=== PATIENT | female | born 1935 | race Caucasian/White ===

== ENCOUNTER 2018-08-27 02:23 | Inpatient (IN) | payer OTHER ==
[~2018-08-27] VITALS: Ht 162.6 cm; Wt 59.9 kg
[2018-08-27 02:23] VITALS: BP 172/75
--- NOTE | 2018-08-27 02:23 | NUR ---
PATIENT BIB BLS TO ER BED 5.
--- NOTE | 2018-08-27 02:30 | NUR ---
PT IS A 82 Y/O FEMALE BIB BLS WHO PRESENTS TO THE ED FOR 5150 - GRAVELY DISABLED. PER PD PT WAS FOUND WANDERING THE STREETS LOOKING FOR HER CAR, PD ALSO STATED THAT PT'S RECENTLY AND DAUGHTER SUPPOSEDLY ARRANGED FOR NEW LIVING SITUATION BUT LEFT FOR WELLS FOR A FEW HOURS. PT WAS SUPPOSED TO BE UNDER WATCH OF CAREGIVER BUT NO ONE WAS SEEN AT HOME. PT IN NO SIGNS OF PAIN. PT IN NO SIGNS OF CP, SOB, N/V/D. NO VISIBLE INJURIES OR SIGNS OF TRAUMA NOTED, SKIN IS INTACT. PT AO TO NAME AND PLACE ONLY, RR EVEN/UNLABORED. PT REPOSITIONED FOR COMFORT, BED IN LOWEST POSITION. ER MD DR. SEBASTIAN NOTIFIED. WILL CONTINUE TO MONITOR. PMH: DEMENTIA, HTN
--- NOTE | 2018-08-27 02:32 | NUR ---
PT DISROBED COMPLETELY AND PLACED IN HOSPITAL GOWN AND SLIPPERS. PERSONAL BELONGINGS HANDED OVER TO SECURITY FOR SAFE STORAGE. BEDSIDE EQUIPMENT REMOVED AND ALL CONTAINERS LOCKED AND SECURED, SITTER PLACED AT BEDSIDE FOR MONITORING.
--- NOTE | 2018-08-27 03:06 | NUR ---
CALLED [facility] AND FILED REPORT. SPOKE WITH ARMEN. INTAKE #[id number].
--- NOTE | 2018-08-27 03:30 | NUR ---
PATIENT RESTING AT THIS TIME; NO SIGNS OF DISTRESS; SITTER AT BEDSIDE.
--- NOTE | 2018-08-27 04:02 | NUR ---
EKG PERFORMED AT BEDSIDE. PT COVERED IN GOWN AND BLANKET DURING PROCEDURE
[2018-08-27 04:22] LABS: BASOPHILS # (AUTO) 0.1 K/uL (0.00-0.22); EOSINOPHILS # (AUTO) 0.1 K/uL (0-0.4); EOSINOPHILS % (AUTO) 1.4 % (0.0-4.0); HEMATOCRIT 39.5 % (36-48); HEMOGLOBIN 13.2 g/dL (12.0-16.0); LYMPHOCYTES # (AUTO) 1.8 K/uL (2.5-16.5); MEAN CORPUSCULAR HEMOGLOBIN 29 pg (27-31); MEAN CORPUSCULAR HGB CONC 33 g/dL (33-37); MEAN CORPUSCULAR VOLUME 85.9 fL (80-94); MONOCYTES # (AUTO) 0.8 K/uL (0.8-1.0); MONOCYTES % (AUTO) 9.1 % (1.7-9.3); NEUTROPHILS # (AUTO) 6.2 K/uL (1.8-7.7); NEUTROPHILS % (AUTO) 68.5 % (42.2-75.2); PLATELET COUNT (AUTO) 324 K/uL (140-450); RED BLOOD CELL COUNT(AUTO) 4.59 MIL/uL (4.20-5.40); RED CELL DISTRIBUTION WIDTH 14.5 % (11.6-13.7); WHITE BLOOD COUNT (AUTO) 9.1 K/uL (4.8-10.8)
--- NOTE | 2018-08-27 04:30 | NUR ---
PATIENT RESTING AT THIS TIME; NO SIGNS OF DISTRESS; SITTER AT BEDSIDE.
--- NOTE | 2018-08-27 04:30 | NUR ---
Audelia barrow in [facility] - 08/27/18 at 0547 by MEDDCV PATIENT RESTING AT THIS TIME; NO SIGNS OF DISTRESS; SITTER AT BEDSIDE.
[2018-08-27 04:52] LABS: SODIUM SERUM 141 mmol/L (136-145)
[2018-08-27 04:54] LABS: ANION GAP 8.8 (8-16); ASPARTATE AMINOTRANSFERASE 21 U/L (15-37); CARBON DIOXIDE 33.7 mmol/L (21-32); CHLORIDE 101 mmol/L (98-107); CREATININE 1.1 mg/dL (0.6-1.3); GLUCOSE 139 mg/dL (74-106); POTASSIUM 2.5 mmol/L (3.5-5.1); TOTAL BILIRUBIN 0.7 mg/dL (0.0-1.0); UREA NITROGEN, BLOOD 22 mg/dL (7-18)
[2018-08-27 04:55] LABS: ACETAMINOPHEN < 0.5 ug/ml (10-30); SALICYLATE < 2.8 mg/dL (2.8-20.0)
[2018-08-27] MEDS ORDERED: DOCUSATE SODIUM 100 MG GELCAP PO PRN (05:15)
[2018-08-27] MEDS ORDERED: HYDROcodone/APAP 7.5/325 MG 1 TAB PO PRN (05:15)
[2018-08-27] MEDS ORDERED: MORPHINE SULFATE 2 MG/ML SYR IVP PRN (05:15)
[2018-08-27] MEDS ORDERED: ONDANSETRON 4 MG/2 ML VIAL IM/IVP PRN (05:15)
[2018-08-27] MEDS ORDERED: ACETAMINOPHEN 325 MG TAB PO PRN (05:15)
[2018-08-27] MEDS ORDERED: POTASSIUM CHLORIDE 20% 40 MEQ/15 ML UDC PO ONE (05:25)
--- NOTE | 2018-08-27 05:30 | NUR ---
PATIENT RESTING AT THIS TIME; NO SIGNS OF DISTRESS; SITTER AT BEDSIDE.
[2018-08-27 05:35] LABS: COLOR,URINE YELLOW (YELLOW)
--- NOTE | 2018-08-27 05:35 | NUR ---
Patient will be admitted to care of DR. BALL. Admited to M/[facility]. Will go to room 121A. Belongings list completed. Report to AUGUST RAY.
--- NOTE | 2018-08-27 05:35 | NUR ---
ADMITTED AN 82F FROM ER. CAME BY WHEELCHAIR. MED SURG PT. PT CAME DUE TO CONFUSION, HX : DEMENTIA. ABLE TO AMBULATE FROM WHEELCHAIR TO BED WITH STANDBY ASSIST. POSITIONED PT FOR COMFORT. WITH IV ACCESS ON THE RT AC#20. CLEAR AND PATENT. PLAN OF CARE DISCUSSED BUT DUE TO DEMENTIA, SHE NEEDS REINFORCEMENT AND ASSISTANCE. SKIN INTACT. WILL FOLLOW UP ADMITTING ORDERS. INITIATE HIGH RISK FOR FALL PROTOCOL. WITH YELLOW SIGNAGE ,SOCKS AND ID BAND.
[2018-08-27 05:37] LABS: BILIRUBIN,URINE NEGATIVE (NEGATIVE); BLOOD, URINE NEGATIVE (NEGATIVE); LEUKOCYTE ESTERASE ,URINE 1+ (NEGATIVE); NITRITE, URINE NEGATIVE (NEGATIVE); UGLUCOSE NEGATIVE (NEGATIVE)
[2018-08-27 05:38] LABS: HYALINE CASTS, URINE 0-10 /LPF (None Seen); RBC,URINE 0-5 (RARE) /HPF (0-5)
[2018-08-27 05:39] LABS: APPEARANCE,URINE HAZY (CLEAR)
[2018-08-27 05:41] LABS: BARBITURATE, URINE NEG ng/ml (NEG <=200); BENZODIAZEPINE, URINE NEG ng/mL (NEG <=200); CANNABINOID, URINE NEG ng/mL (NEG <=50); COCAINE, URINE NEG ng/mL (NEG <=300); PHENCYCLIDINE SCREEN,URINE NEG ng/mL (NEG <=25)
[2018-08-27 05:42] LABS: OPIATE, URINE NEG ng/mL (NEG <=2000)
[2018-08-27] MEDS: NACL 0.9% 1,000 ML IV SCH ×2 (06:40→21:54)
--- NOTE | 2018-08-27 07:10 | NUR ---
SCD MACHINE APPLIED TO BLE ORDERED. EXPLAINED TO PT THE BENEFITS OF THE MACHINE. NEED REINFORCEMENT.
--- NOTE | 2018-08-27 07:19 | NUR ---
ENDORSED BEDSIDE REPORT TO AM SHIFT. NO COMPLAINTS OF PAIN, NOT IN RESPIRATORY DISTRESS, PT IN STABLE CONDITION
--- NOTE | 2018-08-27 07:35 | NUR ---
ENDORSED PT IN STABLE CONDITION TO AM NURSE FOR CONTINUITY OF CARE.
--- NOTE | 2018-08-27 07:40 | NUR ---
RECEIVED PT FROM FOREIGN EXCHANGE STUDENT COORDINATOR NURSE TULIO, AND AUGUST, PT IS AWAKE AND LYING ON THE BED WITH SIDE RAILS UP AND CALL LIGHT WITHIN REACH, SAFETY PRECAUTION ENFORCED, BED IN LOW POSITION, YELLOW GOWN, YELLOW SIGN AND YELLOW BAND WERE PLACED. PT HAS AN IV LINE ON THE RT AC G. 20, WITH NS AT 60ML/HR , INTACT. NO SIGN OF DISTRESS NOTED ON THE PT AND WILL CONTINUE TO MONITOR.
[2018-08-27 08:00] VITALS: BP 132/59
[2018-08-27] MEDS ORDERED: MECLIZINE 25 MG TAB PO PRN (08:55)
[2018-08-27 08:57] LABS: PROTHROMBIN TIME 9.6 secs (10.8-13.4)
[2018-08-27] MEDS ORDERED: POTASSIUM CHLORIDE 40 MEQ, LIDOCAINE 2% 25 MG in NACL 0.9% 250 ML IV SCH (09:00)
--- NOTE | 2018-08-27 09:10 | NUR ---
DR. KEBEDE IS TALKING TO THE PT'S DAUGHTER NOW AND MD IS VERIFYING INFORMATION FROM THE FAMILY.
[2018-08-27 09:27] LABS: CHOL/HDL RATIO 3.5 (1-4.5); FREE T4 (FREE THYROXINE) 1.63 ng/dL (0.76-1.46); MAGNESIUM 2.1 mg/dL (1.8-2.4); PHOSPHORUS 2.9 mg/dL (2.5-4.9); THYROID STIMULATING HORMONE 0.89 uIU/mL (0.34-3.74)
--- NOTE | 2018-08-27 09:39 | NUR ---
PT WAS STARTED ON POTASSIUM RIDER WITH LIDOCAINE AT 250ML FOR A RATE OF 67.69 FOR PT'S K LEVEL OF 2.5. PT TOLERATED IT AND NO SIGN OF DISTRESS AND REACTION NOTED. WILL CONTINUE TO MONITOR PT.
[2018-08-27 12:23] LABS: ANION GAP 6.5 (8-16); CARBON DIOXIDE 33.7 mmol/L (21-32); CHLORIDE 103 mmol/L (98-107); CREATININE 0.9 mg/dL (0.6-1.3); GLUCOSE 109 mg/dL (74-106); POTASSIUM 3.2 mmol/L (3.5-5.1); SODIUM SERUM 140 mmol/L (136-145); UREA NITROGEN, BLOOD 20 mg/dL (7-18)
[2018-08-27] MEDS ORDERED: POTASSIUM CHLORIDE 10 MEQ TABER PO SCH (13:30)
[2018-08-27] MEDS ORDERED: SIMV20TA6 PO (13:37)
[2018-08-27] MEDS ORDERED: SYN.075 PO (13:37)
[2018-08-27] MEDS ORDERED: ATEN25TA7 PO (13:37)
[2018-08-27] MEDS ORDERED: ALEN70TA52 PO (13:37)
[2018-08-27] MEDS ORDERED: ORE25 PO (13:51)
[2018-08-27] MEDS ORDERED: ALENDRONATE SODIUM 70 MG TAB PO SCH (14:30)
--- NOTE | 2018-08-27 15:00 | NUR ---
PT IS AWAKE AND SEATED ON THE BED WITH DAUGHTER ON THE BEDSIDE, ORAL MEDICATIONS GIVEN AND ROCEPHIN WAS STARTED VIA IVPB, PT TOLERATED IT AND NO REACTION NOTED. WILL CONTINUE TO MONITOR PT.
[2018-08-27 16:00] VITALS: BP 114/54
--- NOTE | 2018-08-27 16:46 | NUR ---
PER DAUGHTER PATIENT RECEIVED FLU VACCINE FROM DR PAL'S OFFICE 2 WEEKS AGO.
--- NOTE | 2018-08-27 19:35 | NUR ---
RECEIVED REPORT FROM DAY SHIFT NURSE, YAN, AT PT BEDSIDE. PT IN STABLE CONDITION. PT FAMILY IS AT BEDSIDE. PT IS AAOX3. PT ON RA. RESPIRATIONS ARE EVEN AND UNLABORED. IV ACCESS IN L AC 20G WITH IVF RUNNING PER MD ORDERS. IV IS PATENT AND INTACT. PT SKIN IS INTACT. PT HAS NO C/O PAIN AT THIS TIME. SCD'S ARE IN PLACE. BED IS LOCKED, LOW POSITION WITH SIDE RAILS UP X2. CALL LIGHT IS WITHIN REACH. BOARD UPDATED. WILL CONTINUE TO MONITOR PT.
--- NOTE | 2018-08-27 19:35 | NUR ---
ENDORSED PT TO SENIOR INTERIOR DESIGNER NURSECHAI FOR CONTINUITY OF CARE. PT IS STABLE AT THIS TIME WITH STEPDAUGHTER ON THE BEDSIDE.
[2018-08-27] MEDS: SIMVASTATIN 20 MG TAB PO SCH (20:26)
--- NOTE | 2018-08-27 20:26 | NUR ---
ADMINISTERED SCHEDULED MEDICATION. PT TOLERATED WELL. WILL CONTINUE TO MONITOR.
--- NOTE | 2018-08-27 22:58 | NUR ---
PT WOKE AND WAS PULLING AT IV. PT DID NOT REMEMBER SHE WAS IN THE HOSPITAL. REORIENTED PT AND RE TAPED IV. IV IS STALL PATENT AND INTACT, FLUSHING WELL. PT NOW RESTING COMFORTABLY IN BED. WILL CONTINUE TO MONITOR.
[2018-08-28] VITALS: BP 127/54
--- NOTE | 2018-08-28 01:05 | NUR ---
PT ASLEEP IN BED. NO SIGNS OR SYMPTOMS OF DISTRESS. WILL CONTINUE TO MONITOR.
--- NOTE | 2018-08-28 03:31 | NUR ---
NO CHANGE IN CONDITION. PT HAS NO SIGNS OR SYMPTOMS OF DISTRESS. WILL CONTINUE TO MONITOR.
[2018-08-28] MEDS: NACL 0.9% 1,000 ML IV SCH (04:07)
--- NOTE | 2018-08-28 04:08 | NUR ---
STARTED NEW BAG OF IVF. PT SLEEPING IN BED. NO SIGNS OR SYMPTOMS OF DISTRESS. WILL CONTINUE TO MONITOR.
--- NOTE | 2018-08-28 07:32 | NUR ---
ENDORSED PT TO DAY SHIFT NURSEERNIE FOR CONTINUITY OF CARE. PT IN STABLE CONDITION.
--- NOTE | 2018-08-28 07:35 | NUR ---
RECEIVED REPORT FROM AUTO BODY REPAIR TECHNICIAN NURSE. PT IS SLEEPING IN BED, SEMI FOWLERS POSITION, PT EASILY AWAKEN, PT IS AAOX1-2, PT HAS IV ON THE RIGHT AC, PATENT, INTACT, FLUSHING WELL, PT SKIN IS INTACT, NO S/S OF RESPIRATORY DISTRESS OR DISCOMFORT NOTED, PT IS ON ROOM AIR, DISCUSSED PLAN OF CARE WITH PT, PT VERBALIZED UNDERSTANDING, REINFORCEMENT IS NEEDED SAFETY/FALL PRECAUTIONS ARE IN PLACE, CALL LIGHT IS WITHIN REACH, PT'S STEPDAUGHTER IS AT BEDSIDE, WILL CONTINUE TO MONITOR.
[2018-08-28 07:54] LABS: BASOPHILS % (AUTO) 0.7 % (0.0-2.0); EOSINOPHILS # (AUTO) 0.2 K/uL (0-0.4); EOSINOPHILS % (AUTO) 3.9 % (0.0-4.0); HEMATOCRIT 39.9 % (36-48); HEMOGLOBIN 13.2 g/dL (12.0-16.0); LYMPHOCYTES # (AUTO) 1.8 K/uL (2.5-16.5); LYMPHOCYTES % (AUTO) 29.4 % (20.5-51.1); MEAN CORPUSCULAR HEMOGLOBIN 29 pg (27-31); MEAN CORPUSCULAR HGB CONC 33 g/dL (33-37); MEAN CORPUSCULAR VOLUME 86.3 fL (80-94); MONOCYTES # (AUTO) 0.5 K/uL (0.8-1.0); MONOCYTES % (AUTO) 7.6 % (1.7-9.3); NEUTROPHILS # (AUTO) 3.6 K/uL (1.8-7.7); NEUTROPHILS % (AUTO) 58.4 % (42.2-75.2); PLATELET COUNT (AUTO) 310 K/uL (140-450); RED BLOOD CELL COUNT(AUTO) 4.62 MIL/uL (4.20-5.40); RED CELL DISTRIBUTION WIDTH 14.9 % (11.6-13.7); WHITE BLOOD COUNT (AUTO) 6.1 K/uL (4.8-10.8)
[2018-08-28 08:00] VITALS: BP 138/58
[2018-08-28 08:37] LABS: ANION GAP 8.3 (8-16); CHLORIDE 108 mmol/L (98-107); CREATININE 0.9 mg/dL (0.6-1.3); GLUCOSE 95 mg/dL (74-106); POTASSIUM 3.3 mmol/L (3.5-5.1); SODIUM SERUM 144 mmol/L (136-145); UREA NITROGEN, BLOOD 16 mg/dL (7-18)
--- NOTE | 2018-08-28 08:39 | NUR ---
PATIENT HAS BEEN SCREENED AND CATEGORIZED MODERATE NUTRITION RISK. PATIENT WILL BE SEEN WITHIN 3-5 DAYS OF ADMISSION. 08/29/18 08/31/[address]
[2018-08-28 08:43] LABS: PHOSPHORUS 2.5 mg/dL (2.5-4.9)
[2018-08-28] MEDS: ATENOLOL 25 MG TAB PO SCH (08:56)
[2018-08-28] MEDS: SPIRONOLACTONE 25 MG TAB PO SCH (08:57)
--- NOTE | 2018-08-28 08:57 | NUR ---
DUE MEDICATIONS GIVEN, PT TOLERATED WELL. PT'S FAMILY MEMBER IS AT BEDSIDE, CALL LIGHT IS WITHIN REACH.
[2018-08-28] MEDS ORDERED: HYDROCHLOROTHIAZIDE 25 MG TAB PO SCH (09:00)
[2018-08-28] MEDS ORDERED: LEVOTHYROXINE 0.075 MG TAB PO SCH ×2 (09:00→14:12)
[2018-08-28 09:12] LABS: T4 (THYROXINE) 10.5 ug/dL (4.5-12.0)
[2018-08-28] MEDS ORDERED: POTASSIUM CHLORIDE 40 MEQ, LIDOCAINE 2% 25 MG in NACL 0.9% 250 ML IV SCH (11:30)
--- NOTE | 2018-08-28 11:30 | NUR ---
PT IS SITTING IN BED, WATCHING TV, NO S/S OF DISTRESS OR DISCOMFORT NOTED, FAMILY MEMBER IS AT BEDSIDE, CALL LIGHT WITHIN REACH.
[2018-08-28] MEDS ORDERED: SPIR25TA PO (12:36)
[2018-08-28] MEDS ORDERED: SULF-58 PO (12:36)
--- NOTE | 2018-08-28 13:11 | NUR ---
ADMISSION CHART REVIEW DONE INITIAL REVIEW FAXED TO [facility] [phone] PHONE VINH [phone]
--- NOTE | 2018-08-28 14:47 | NUR ---
PT IS RESTING IN BED, FAMILY MEMBER IS AT BEDSIDE, ALL NEEDS ARE MET AT THIS TIME.
[2018-08-28 16:00] VITALS: BP 141/54
--- NOTE | 2018-08-28 19:25 | NUR ---
ENDORSED PT TO RV REPAIRER NURSE FOR CONTINUITY OF CARE. PT STABLE AT THIS TIME.
--- NOTE | 2018-08-28 19:26 | NUR ---
RECEIVED REPORT FROM DAY SHIFT RN, FOR CONTINUITY OF CARE. PT IS A/OX2, ON ROOM AIR. PT IS ABLE TO MAKE NEEDS KNOWN, ABLE TO FOLLOW COMMANDS. PT BREATHS EQUAL AND UNLABORED. PT SKIN IS INTACT. PT AMBULATES WITH ASSIST. PT HAS A 24G IV TO LEFT HAND, ASYMPTOMATIC AND INTACT. DISCUSSED PLAN OF CARE WITH PT, PT VERBALIZED UNDERSTANDING. VITAL SIGNS WITHIN NORMAL LIMITS. PT STABLE, NO SIGNS OF DISTRESS NOTED AT THIS TIME. BED IN LOWEST POSITION, BED ALARM ON. CALL LIGHT WITHIN REACH, WILL CONTINUE TO MONITOR.
[2018-08-28] MEDS: SIMVASTATIN 20 MG TAB PO SCH (20:37)
--- NOTE | 2018-08-28 20:38 | NUR ---
ADMINISTERED SCHEDULED MEDICATION, PT TOLERATED WELL.
[2018-08-29] VITALS: BP 122/50
--- NOTE | 2018-08-29 | NUR ---
VITAL SIGNS WITHIN NORMAL LIMITS. PT STABLE, NO SIGNS OF DISTRESS NOTED AT THIS TIME. BED IN LOWEST POSITION, BED ALARM ON. CALL LIGHT WITHIN REACH, WILL CONTINUE TO MONITOR.
--- NOTE | 2018-08-29 02:15 | NUR ---
PT RESTING, NO SIGNS OF DISTRESS NOTED AT THIS TIME. BED IN LOWEST POSITION, BED ALARM ON. CALL LIGHT WITHIN REACH, WILL CONTINUE TO MONITOR.
--- NOTE | 2018-08-29 04:00 | NUR ---
PT STABLE, NO SIGNS OF DISTRESS NOTED AT THIS TIME. BED IN LOWEST POSITION, BED ALARM ON. CALL LIGHT WITHIN REACH, WILL CONTINUE TO MONITOR.
--- NOTE | 2018-08-29 06:10 | NUR ---
ADMINISTERED SCHEDULED MEDICATION, PT TOLERATED WELL.
[2018-08-29 06:50] LABS: BASOPHILS # (AUTO) 0.1 K/uL (0.00-0.22); BASOPHILS % (AUTO) 0.9 % (0.0-2.0); EOSINOPHILS # (AUTO) 0.3 K/uL (0-0.4); EOSINOPHILS % (AUTO) 5.1 % (0.0-4.0); HEMOGLOBIN 11.5 g/dL (12.0-16.0); LYMPHOCYTES # (AUTO) 1.5 K/uL (2.5-16.5); MEAN CORPUSCULAR HEMOGLOBIN 29 pg (27-31); MEAN CORPUSCULAR HGB CONC 33 g/dL (33-37); MEAN CORPUSCULAR VOLUME 86.8 fL (80-94); MONOCYTES # (AUTO) 0.5 K/uL (0.8-1.0); MONOCYTES % (AUTO) 9.2 % (1.7-9.3); NEUTROPHILS # (AUTO) 3.3 K/uL (1.8-7.7); NEUTROPHILS % (AUTO) 57.8 % (42.2-75.2); PLATELET COUNT (AUTO) 279 K/uL (140-450); RED BLOOD CELL COUNT(AUTO) 4.03 MIL/uL (4.20-5.40); WHITE BLOOD COUNT (AUTO) 5.7 K/uL (4.8-10.8)
[2018-08-29] MEDS: NACL 0.9% 1,000 ML IV SCH (07:05)
--- NOTE | 2018-08-29 07:35 | NUR ---
RECEIVED REPORT FROM SECURITY AGENT RN. PT A/O X2. VERBAL. ABLE TO MAKE NEEDS KNOWN. SKIN DRY AND WARM TO TOUCH. LUNGS CLEAR ON AUSCULTATION. ABDOMEN SOFT, ROUND AND NON-TENDER. SKIN INTACT. SKIN DISCOLORATION NOTED ON BOTH ARMS. LEFT HAND 24G. INTACT. NS RUNNING AT 60 ML/HR. DENIES PAIN. WILL CONTINUE TO MONITOR.
--- NOTE | 2018-08-29 07:35 | NUR ---
ENDORSED PT TO DAY SHIFT RN FOR CONTINUITY OF CARE. PT IN STABLE CONDITION.
[2018-08-29 07:53] LABS: ANION GAP 8.1 (8-16); CARBON DIOXIDE 26.5 mmol/L (21-32); CHLORIDE 113 mmol/L (98-107); CREATININE 0.9 mg/dL (0.6-1.3); GLUCOSE 98 mg/dL (74-106); POTASSIUM 3.6 mmol/L (3.5-5.1); SODIUM SERUM 144 mmol/L (136-145); UREA NITROGEN, BLOOD 15 mg/dL (7-18)
[2018-08-29 08:00] VITALS: BP 156/59
[2018-08-29] MEDS: SPIRONOLACTONE 25 MG TAB PO SCH (08:09)
--- NOTE | 2018-08-29 08:10 | NUR ---
ADMINISTERED SCHEDULED MEDICINE. TOLERATED WELL.
[2018-08-29] MEDS: ATENOLOL 25 MG TAB PO SCH (08:11)
[2018-08-29 08:32] LABS: MAGNESIUM 1.9 mg/dL (1.8-2.4); PHOSPHORUS 2.3 mg/dL (2.5-4.9)
--- NOTE | 2018-08-29 11:19 | NUR ---
FAXED CONCURRENT REVIEW TO [facility] [phone] PHONE LARRY [phone]
[2018-08-29 12:09] VITALS: BP 121/49
--- NOTE | 2018-08-29 12:12 | NUR ---
FOLLOW UP WITH DR. DOMINGO IF SHE WANTS TO CONTINUE IV ROCEPHIN, SAID DO NOT GIVE ROCEPHIN.
--- NOTE | 2018-08-29 12:12 | NUR ---
ROCEPHIN NOT ADMINISTERED PER DR. DOMINGO.
[2018-08-29] MEDS ORDERED: SODIUM PHOS / POTASSIUM PHOS 1 PKT PDR PO SCH (13:00)
[2018-08-29 13:36] VITALS: BP 121/49
--- NOTE | 2018-08-29 14:32 | NUR ---
Patient discharged with v/s stable. Written and verbal after care instructions given and explained to patient and daughter. Patient/daughter alert, oriented and verbalized understanding of instructions. Ambulatory with steady gait. All questions addressed prior to discharge. ID band removed. Patient advised to follow up with PMD and Dr. Kulkarni. Rx of given. Patient educated on indication of medication including possible reaction and side effects. Opportunity to ask questions provided and answered. All necessary documents provided to daughter. pt left facility via wheel chair assisted by TEACHERS AIDE and daughter.
[2018-09-03] MEDS ORDERED: ALENDRONATE SODIUM 70 MG TAB PO SCH (06:00)
== END 2018-08-29 14:20 | disposition home or self-care (01) | DRG 689 ==
LOC: MED 02:23 → MTU 05:14
PROVIDERS: ADMIT General Practice; ATTEND General Practice
DX: N39.0 Urinary tract infection, site not specified (principal); G93.41 Metabolic encephalopathy; E87.6 Hypokalemia; I10 Essential (primary) hypertension; E78.5 Hyperlipidemia, unspecified; G30.9 Alzheimer's disease, unspecified; F02.80 Dementia in other diseases classified elsewhere, unspecified severity, without behavioral disturbance, psychotic disturbance, mood disturbance, and anxiety; M81.0 Age-related osteoporosis without current pathological fracture; E03.9 Hypothyroidism, unspecified; M47.9 Spondylosis, unspecified; I70.0 Atherosclerosis of aorta; D64.9 Anemia, unspecified; E83.39 Other disorders of phosphorus metabolism; Z79.899 Other long term (current) drug therapy
CPT/HCPCS: 36415; 70450; 71045; 80048; 80053; 80305; 81001; 82140; 82150; 82550; 83036; 83690; 83735; 83880; 84100; 84436; 84439; 84443; 84484; 85025; 85610; 85730; 87081; 87086; 93005; 99285; G0480; G0482; J0696; J2001; J3480; J7030; J7060; Q0092

== ENCOUNTER 2019-09-14 14:39 | Inpatient (IN) | payer OTHER ==
[~2019-09-14] VITALS: Ht 157.5 cm; Wt 59.0 kg
[~2019-09-14 14:39] MED LIST: ALEN70TA9 PO; ATEN25TA7 PO; SIMV20TA6 PO; SPIR25TA PO; SULF-58 PO; SYN.075 PO
[2019-09-14 14:59] VITALS: BP 147/66
[2019-09-14 15:34] LABS: BASOPHILS # (AUTO) 0.1 K/uL (0.00-0.22); BASOPHILS % (AUTO) 0.6 % (0.0-2.0); EOSINOPHILS # (AUTO) 0.2 K/uL (0-0.4); EOSINOPHILS % (AUTO) 1.8 % (0.0-4.0); HEMATOCRIT 41.4 % (36-48); HEMOGLOBIN 13.6 g/dL (12.0-16.0); LYMPHOCYTES # (AUTO) 1.1 K/uL (2.5-16.5); LYMPHOCYTES % (AUTO) 11.6 % (20.5-51.1); MEAN CORPUSCULAR HEMOGLOBIN 29 pg (27-31); MEAN CORPUSCULAR HGB CONC 33 g/dL (33-37); MONOCYTES # (AUTO) 0.8 K/uL (0.8-1.0); MONOCYTES % (AUTO) 7.8 % (1.7-9.3); NEUTROPHILS # (AUTO) 7.6 K/uL (1.8-7.7); NEUTROPHILS % (AUTO) 78.2 % (42.2-75.2); PLATELET COUNT (AUTO) 374 K/uL (140-450); RED BLOOD CELL COUNT(AUTO) 4.71 MIL/uL (4.20-5.40); WHITE BLOOD COUNT (AUTO) 9.7 K/uL (4.8-10.8)
[2019-09-14 15:46] LABS: ALBUMIN 3.2 g/dL (3.4-5.0); ANION GAP 10.8 (8-16); ASPARTATE AMINOTRANSFERASE 14 U/L (15-37); CARBON DIOXIDE 31.1 mmol/L (21-32); CHLORIDE 107 mmol/L (98-107); CREATININE 1.1 mg/dL (0.6-1.3); GLUCOSE 164 mg/dL (74-106); SODIUM SERUM 146 mmol/L (136-145); TOTAL BILIRUBIN 0.6 mg/dL (0.0-1.0); UREA NITROGEN, BLOOD 12 mg/dL (7-18)
--- NOTE | 2019-09-14 15:48 | NUR ---
PATIENT PRESENTS TO ED WITH ALOC. PT WAS WALKING ON A TRAIL WITH CAREGIVERS WHEN SHE HAD A NEAR SYNCOPAL EPISODE AT 2PM. PT INCONTINENT X 2. PER CAREGIVERS, PT IS USUALLY CONTINENT. DENIES LOSS OF CONSCIOUSNESS, VOMITING, CP. SKIN IS PINK/WARM/DRY; AAOX4 WITH EVEN AND STEADY GAIT; LUNGS CLEAR BL; HR EVEN AND REGULAR; PATIENT STATES PAIN OF 0/10 AT THIS TIME; VSS; PATIENT POSITIONED FOR COMFORT; HOB ELEVATED; BEDRAILS UP X2; BED DOWN. ER MD SAW PT. PMH: DEMENTIA, HTN, THYROID DSE NO ALLERGIES
[2019-09-14 15:50] LABS: POTASSIUM 2.9 mmol/L (3.5-5.1)
[2019-09-14] MEDS ORDERED: NACL 0.9% 1,000 ML IV ONE (15:50)
[2019-09-14] MEDS ORDERED: POTASSIUM CHLORIDE 10 MEQ TABER PO ONE ×3 (15:50→22:04)
[2019-09-14] MEDS ORDERED: MAGNESIUM OXIDE 400 MG TAB PO ONE (15:50)
[2019-09-14 16:10] LABS: APPEARANCE,URINE CLEAR (CLEAR); BILIRUBIN,URINE NEGATIVE (NEGATIVE); BLOOD, URINE NEGATIVE (NEGATIVE); COLOR,URINE YELLOW (YELLOW); LEUKOCYTE ESTERASE ,URINE NEGATIVE (NEGATIVE); NITRITE, URINE NEGATIVE (NEGATIVE); PH,URINE 5.5 (5.0-9.0); UGLUCOSE NEGATIVE (NEGATIVE)
[2019-09-14] MEDS ORDERED: QUET25TA PO (16:32)
[2019-09-14] MEDS ORDERED: TEMA15CA24 PO (16:32)
--- NOTE | 2019-09-14 19:20 | NUR ---
RECEIVED BEDSIDE REPORT FROM ED RN DONTAE FOR PT'S CONTINUITY OF CARE. PT IS AWAKE, ALERT, ORIENTED X 1-2, FOLLOWS SIMPLE COMMANDS, IS ON COPIER FIELD SERVICE TECHNICIAN, ON ROOM AIR, HAS RIGHT AC 22G IV, DENIES ANY PAIN AT THIS TIME. FALL PRECAUTION IN PLACE. VS CHECKED. EXPLAINED TO PT THE BEAM DEPARTMENT SUPERVISOR ROUTINE. BED IS ON LOW POSITION, SIDE RAILS ARE UP, AND CALL LIGHT IS WITHIN REACH. WILL MONITOR PT THROUGHOUT SHIFT.
[2019-09-14] MEDS ORDERED: NACL 0.9% 1,000 ML IV SCH (19:23)
[2019-09-14] MEDS ORDERED: LORazepam 2 MG/ML VIAL IM/IVP PRN (19:25)
[2019-09-14] MEDS ORDERED: ACETAMINOPHEN 325 MG TAB PO PRN (19:25)
[2019-09-14] MEDS ORDERED: ZOLPIDEM 5 MG TAB PO PRN (19:25)
[2019-09-14] MEDS ORDERED: MORPHINE SULFATE 2 MG/ML SYR IVP PRN (19:25)
[2019-09-14] MEDS ORDERED: ONDANSETRON 4 MG/2 ML VIAL IM/IVP PRN (19:25)
[2019-09-14] MEDS ORDERED: HYDROcodone/APAP 5/325 MG 1 TAB TAB PO PRN (19:25)
[2019-09-14] MEDS ORDERED: DOCUSATE SODIUM 100 MG GELCAP PO PRN (19:25)
--- NOTE | 2019-09-14 19:26 | NUR ---
Patient will be admitted to care of DR. BALL. Admited to [facility]. Will go to room 124-B. Belongings list completed. Report to CORY SAUCEDO.
[2019-09-14 20:00] VITALS: BP 148/60
[2019-09-14] MEDS: SIMVASTATIN 20 MG TAB PO SCH (22:06)
--- NOTE | 2019-09-14 22:07 | NUR ---
ADMINISTERED SCHEDULED PO MEDICATIONS AND IVF ORDERED. PT TOLERATED THEM WELL. PRIMARY CAREGIVER AT BEDSIDE, EXPLAINED THE GLOST TILE SHADER ROUTINE. CAREGIVER BROUGHT HOME PT'S PERSONAL BELONGINGS EXCEPT UPPER DENTURE. CAREGIVER UNAWARE OF PAST HX OF SX, OR LAST PNA VACCINE. PER CAREGIVER, PT USUALLY BECOMES MORE COHERENT IN AMS AND LESS AT NIGHT TIME. CAREGIVER STATES MD SPOKE TO HER AND EXPLAIN THE PLAN OF CARE. WILL CONTINUE TO MONITOR PT.
[2019-09-14 22:38] LABS: PHOSPHORUS 3.6 mg/dL (2.5-4.9); THYROID STIMULATING HORMONE 2.54 uIU/mL (0.34-3.74)
[2019-09-14 22:57] LABS: PROTHROMBIN TIME 9.3 secs (10.8-13.4)
[2019-09-15] VITALS (9 sets, daily range): BP systolic 126–170; BP diastolic 52–63
--- NOTE | 2019-09-15 | NUR ---
VS CHECKED AND CHARTED. PT TAKEN TO CT FOR CT HEAD WITHOUT CONTRAST.
[2019-09-15] MEDS ORDERED: MELATONIN 3 MG TAB PO PRN (01:30)
--- NOTE | 2019-09-15 02:00 | NUR ---
MADE ROUNDS. PT LYING DOWN AWAKE WITH NO COMPLAINS OF PAIN. REORIENTED PT TO SURROUNDINGS AND ENCOURAGED TO GET SOME SLEEP. PT REPEATEDLY SAYS "OK". PER CAREGIVER, THAT IS NORMAL SPEECH PATTERN FOR THE PT. WILL CONTINUE TO MONITOR PT.
--- NOTE | 2019-09-15 04:30 | NUR ---
VS CHECKED AND CHARTED. ORTHOSTATIC HYPOTENSION VS FF: LYING DOWN BP 159/60 P 67; SITTING UP BP 168/60 P 72; STANDING UP BP 155/60 P 68 ALL 3 MIN INTERVALS. ASSISTED PT TO THE RESTROOM TO VOID. PT TOLERATED ACTIVITY WELL. WILL CONTINUE TO MONITOR PT.
--- NOTE | 2019-09-15 06:30 | NUR ---
PT LYING DOWN ASLEEP WITH NO SIGNS OF DISTRESS. WILL ENDORSE TO AM SHIFT RN FOR PT'S CONTINUITY OF CARE.
[2019-09-15 07:39] LABS: ANION GAP 10.3 (8-16); CARBON DIOXIDE 29.7 mmol/L (21-32); CHLORIDE 111 mmol/L (98-107); CREATININE 0.8 mg/dL (0.6-1.3); GLUCOSE 98 mg/dL (74-106); SODIUM SERUM 148 mmol/L (136-145); UREA NITROGEN, BLOOD 8 mg/dL (7-18)
--- NOTE | 2019-09-15 07:39 | NUR ---
RECEIVED HAND OFF REPORT FROM PM RN PT APPEARS STABLE AND IN NO APPARENT DISTRESS. ALL SAFETY MEASURES ARE IN PLACE WILL CONTINUE TO MONITOR.
[2019-09-15 08:01] LABS: BASOPHILS % (AUTO) 0.5 % (0.0-2.0); EOSINOPHILS # (AUTO) 0.2 K/uL (0-0.4); EOSINOPHILS % (AUTO) 2.4 % (0.0-4.0); HEMATOCRIT 36.2 % (36-48); HEMOGLOBIN 11.8 g/dL (12.0-16.0); LYMPHOCYTES # (AUTO) 1.3 K/uL (2.5-16.5); LYMPHOCYTES % (AUTO) 16.1 % (20.5-51.1); MEAN CORPUSCULAR HEMOGLOBIN 29 pg (27-31); MEAN CORPUSCULAR HGB CONC 33 g/dL (33-37); MEAN CORPUSCULAR VOLUME 88.4 fL (80-94); MONOCYTES # (AUTO) 0.7 K/uL (0.8-1.0); NEUTROPHILS # (AUTO) 5.9 K/uL (1.8-7.7); PLATELET COUNT (AUTO) 326 K/uL (140-450); RED CELL DISTRIBUTION WIDTH 14.4 % (11.6-13.7); WHITE BLOOD COUNT (AUTO) 8.2 K/uL (4.8-10.8)
[2019-09-15] MEDS: NACL 0.45% 1,000 ML IV SCH ×2 (08:20→18:21)
[2019-09-15] MEDS ORDERED: POTASSIUM CHLORIDE 40 MEQ, LIDOCAINE MPF 1% 25 MG in NACL 0.9% 250 ML IV SCH (09:00)
[2019-09-15] MEDS: SPIRONOLACTONE 25 MG TAB PO SCH (09:27)
[2019-09-15] MEDS: ATENOLOL 25 MG TAB PO SCH (09:27)
[2019-09-15] MEDS: LEVOTHYROXINE 0.075 MG TAB PO SCH (09:28)
--- NOTE | 2019-09-15 09:34 | NUR ---
FREQUENT ROUNDING ON PT PT APPEARS STABLE AND IN NO APPARENT DISTRESS. ALL SAFETY MEASURES ARE IN PLACE. PT CAREGIVER AT BEDSIDE WILL CONTINUE TO MONITOR.
--- NOTE | 2019-09-15 11:34 | NUR ---
FREQUENT ROUNDING ON PT PT APPEARS STABLE AND IN NO APPARENT DISTRESS. ALL SAFETY MEASURES ARE IN PLACE
[2019-09-15 12:09] LABS: CHOL/HDL RATIO 3.2 (1-4.5)
--- NOTE | 2019-09-15 13:19 | NUR ---
FREQUENT ROUNDING ON PT PT APPEARS STABLE AND IN NO APPARENT DISTRESS. ALL SAFETY MEASURES ARE IN PLACE ALL SAFETY MEASURES ARE IN PLACE.
[2019-09-15 15:41] LABS: ANION GAP 11.5 (8-16); CARBON DIOXIDE 29.2 mmol/L (21-32); CHLORIDE 110 mmol/L (98-107); CREATININE 0.9 mg/dL (0.6-1.3); GLUCOSE 129 mg/dL (74-106); POTASSIUM 3.7 mmol/L (3.5-5.1); SODIUM SERUM 147 mmol/L (136-145); UREA NITROGEN, BLOOD 8 mg/dL (7-18)
--- NOTE | 2019-09-15 15:42 | NUR ---
FREQUENT ROUNDING ON PT PT APPEARS STABLE AND IN NO APPARENT DISTRESS. ALL SAFETY MEASURES ARE IN PLACE WILL CONTINUE TO MONITOR.
--- NOTE | 2019-09-15 19:26 | NUR ---
ENDORSED TO PM RN PT APPEARS STABLE AND IN NO APPARENT DISTRESS. ALL SAFETY MEASURES ARE IN PLACE
--- NOTE | 2019-09-15 19:30 | NUR ---
RECEIVED BEDSIDE REPORT FROM AM SHIFT CORY CARABALLO, FOR PT'S CONTINUITY OF CARE. PT IS LYING DOWN, AWAKE, MD AND CAREGIVER AT BEDSIDE, IS ON PHYSICAL THERAPY NURSE, ON ROOM AIR, HAS RIGHT AC 22G WITH 1/2 NS AT 100ML/HR AND DENIES ANY PAIN AT THIS TIME. EXPLAINED TO PT AND CAREGIVER THE AUTOMOTIVE ELECTRICIAN ROUTINE, PT AND CAREGIVER VERBALIZED UNDERSTANDING. FALL PRECAUTION IN PLACE, SAFETY MEASURES IN PLACE. WILL MONITOR PT THROUGHOUT SHIFT.
[2019-09-15] MEDS: SIMVASTATIN 20 MG TAB PO SCH (20:53)
--- NOTE | 2019-09-15 20:54 | NUR ---
ADMINISTERED SCHEDULED PO AND SUBQ MEDICATIONS ORDERED. PT TOLERATED THEM WELL IV CATH GOT PULLED OUT, WILL REINSERT NEW IV.
[2019-09-15] MEDS ORDERED: TEMAZEPAM 15 MG CAP PO PRN (21:00)
--- NOTE | 2019-09-15 21:45 | NUR ---
INSERTED NEW IV ON THE RIGHT HAND 22G. PT TOLERATED IT WELL.
--- NOTE | 2019-09-15 23:15 | NUR ---
PT APPEARS TO BE SLEEPLESS, TRYING TO GET UP AND OUT OF BED, ASSISTED PT TO THE RESTROOM, VOIDED ONCE. REORIENTED PT TO THE SURROUNDINGS. ADMINISTERED PRN PO MEDICATION ORDERED. PER CAREGIVER, PT TAKES MEDICATION AT HOME TO HELP HER SLEEP WHEN SLEEPLESS AT NIGHT. WILL CONTINUE TO REORIENT PT TO SURROUNDINGS AND ENCOURAGE TO GET SOME SLEEP.
--- NOTE | 2019-09-15 23:50 | NUR ---
PT'S IV ON RIGHT HAND WAS INFILTRATED. REINSERTED NEW IV ON THE LEFT HAND 24G. PT TOLERATED IT WELL. VS CHECKED AND CHARTED, DENIES ANY PAIN AT THIS TIME. WILL CONTINUE TO MONITOR PT.
[2019-09-16] VITALS: BP 143/57
[2019-09-16] MEDS: NACL 0.45% 1,000 ML IV SCH (01:54)
--- NOTE | 2019-09-16 01:54 | NUR ---
ADMINISTERED IV FLUID ORDERED. PT ASLEEP WITH NO SIGNS OF DISTRESS. WILL CONTINUE TO MONITOR PT.
[2019-09-16 04:00] VITALS: BP 142/63
--- NOTE | 2019-09-16 04:10 | NUR ---
VS CHECKED AND CHARTED. PT LYING DOWN ASLEEP WITH NO SIGNS OF DISTRESS. PT WOKE UP AND DENIES ANY PAIN. WILL CONTINUE TO MONITOR PT.
[2019-09-16 07:11] LABS: ANION GAP 10.8 (8-16); CARBON DIOXIDE 26.3 mmol/L (21-32); CHLORIDE 111 mmol/L (98-107); CREATININE 0.7 mg/dL (0.6-1.3); GLUCOSE 89 mg/dL (74-106); POTASSIUM 3.1 mmol/L (3.5-5.1); SODIUM SERUM 145 mmol/L (136-145); UREA NITROGEN, BLOOD 12 mg/dL (7-18)
[2019-09-16 07:12] LABS: BASOPHILS # (AUTO) 0.1 K/uL (0.00-0.22); BASOPHILS % (AUTO) 0.9 % (0.0-2.0); EOSINOPHILS # (AUTO) 0.3 K/uL (0-0.4); EOSINOPHILS % (AUTO) 4.6 % (0.0-4.0); HEMATOCRIT 32.5 % (36-48); HEMOGLOBIN 10.7 g/dL (12.0-16.0); LYMPHOCYTES # (AUTO) 1.6 K/uL (2.5-16.5); LYMPHOCYTES % (AUTO) 25.7 % (20.5-51.1); MEAN CORPUSCULAR HEMOGLOBIN 29 pg (27-31); MEAN CORPUSCULAR HGB CONC 33 g/dL (33-37); MEAN CORPUSCULAR VOLUME 88.3 fL (80-94); MONOCYTES # (AUTO) 0.4 K/uL (0.8-1.0); MONOCYTES % (AUTO) 7.1 % (1.7-9.3); NEUTROPHILS # (AUTO) 3.8 K/uL (1.8-7.7); NEUTROPHILS % (AUTO) 61.7 % (42.2-75.2); PLATELET COUNT (AUTO) 264 K/uL (140-450); RED BLOOD CELL COUNT(AUTO) 3.68 MIL/uL (4.20-5.40); RED CELL DISTRIBUTION WIDTH 14.2 % (11.6-13.7); WHITE BLOOD COUNT (AUTO) 6.2 K/uL (4.8-10.8)
--- NOTE | 2019-09-16 07:15 | NUR ---
PT ASLEEP WITH NO SIGNS OF DISTRESS. WILL ENDORSE TO AM SHIFT RN FOR PT'S CONTINUITY OF CARE.
--- NOTE | 2019-09-16 07:16 | NUR ---
RECEIVED BEDSIDE REPORT FROM AUTOMATION OPERATOR NURSE, PT IS AAOX2, ABLE TO FOLLOW COMMANDS AND MAKE NEEDS KNOWN, VSS, DENIES PAIN, NO S/S OF DISTRESS, DIMINISHED LUNG SOUNDS JUAN LUIS. ON RA, DENIES CHEST PAIN, SB ON TELE MONITOR, CAP REFILL <2 SEC. SOFT ROUND ABDOMEN WITH ACTIVE BOWEL SOUNDS, INCONTINENT WITH B&B'S, ABLE TO MOVE ALL EXTREMITIES, GENERALIZED WEAKNESS NOTED. SKIN IS WARM AND DRY TO TOUCH, NO OPEN WOUND, IV TO LEFT HAND, 24GA, PATENT AND RUNNING 1/2 NS AT 100 ML/HR. HOB ELEVATED 30 DEGREES, SAFETY MEASURES IN PLACE, CALL LIGHT WITHIN REACH, WILL CONTINUE TO MONITOR.
[2019-09-16 08:00] VITALS: BP 150/63
[2019-09-16] MEDS ORDERED: POTASSIUM CHLORIDE 10 MEQ TABER PO SCH (08:17)
--- NOTE | 2019-09-16 08:19 | NUR ---
PATIENT HAS BEEN SCREENED AND CATEGORIZED HIGH NUTRITION RISK. PATIENT WILL BE SEEN WITHIN 1-2 DAYS OF ADMISSION. 09/16/[address] Addendum: 09/16/19 at [address] PATIENT HAS BEEN SCREENED AND CATEGORIZED MODERATE NUTRITION RISK. PATIENT WILL BE SEEN WITHIN 3-5 DAYS OF ADMISSION. 09/18/[address]
[2019-09-16] MEDS ORDERED: QUEtiapine FUMARATE 25 MG TAB PO PRN (09:00)
[2019-09-16] MEDS: SPIRONOLACTONE 25 MG TAB PO SCH (09:14)
[2019-09-16] MEDS: LEVOTHYROXINE 0.075 MG TAB PO SCH (09:15)
[2019-09-16] MEDS: ATENOLOL 25 MG TAB PO SCH (09:15)
--- NOTE | 2019-09-16 09:15 | NUR ---
SCHEDULED MEDICATION GIVEN, PT IS ABLE TO SWALLOW PILLS WHOLE WITHOUT DIFFICULTIES AT THIS TIME.
--- NOTE | 2019-09-16 10:00 | NUR ---
EEG AT BEDSIDE WITH TOMBSTONE ERECTOR.
--- NOTE | 2019-09-16 14:30 | NUR ---
PT PULLED OUT IV SITE TO LEFT HAND, SMALL AMOUNT OF BLEEDING NOTED, INSERTED NEW IV LINE TO RIGHT WRIST, 22GA, WRAPPING WITH GAUZE, REORIENTED PT NOT TO PLAYING AND PULLING IV TUBES, PT STATED,"OK".
[2019-09-16 16:00] VITALS: BP 149/61
--- NOTE | 2019-09-16 16:30 | NUR ---
PATIENT TRIED TO GET OUT OF BED AT THIS TIME, SITTING AT SIDE OF BED, TRIED TO GET UP, REORIENTED PATIENT BACK TO BED, EDUCATED PT FALL RISK, PT STATED,"OK."
--- NOTE | 2019-09-16 17:50 | NUR ---
PT WAS FOUND TO PLAYING THE IV TUBING IN BED AND PULLED OUT IV SITE TO RIGHT WRIST, NO BLEEDING NOTED AT THIS TIME, DR. PATEL MADE AWARE, OK TO LEAVE PATIENT WITHOUT IV CATHETER AT THIS TIME, STATED POSSIBLE D/C TOMORROW.
--- NOTE | 2019-09-16 19:20 | NUR ---
REPORT GIVEN TO PAYLOADER OPERATOR NURSE FOR CONTINUE OF CARE, PT IS IN STABLE CONDITION AT THIS TIME.
[2019-09-16] MEDS: SIMVASTATIN 20 MG TAB PO SCH (20:07)
--- NOTE | 2019-09-16 20:10 | NUR ---
PT INCREASED IN , CAREGIVER AT BEDSIDE STATES PT BEEN TRYING TO GET UP AND WANTS TO GO HOME. FREQUENT REORIENTATION NEEDED. STATES THAT PT TAKES TEMAZEPAM OR MELATONIN AT HOME, TO HELP HER SLEEP. ADMINISTERED SCHEDULED PO AND SUBQ HEPARIN, AND PRN PO TEMAZEPAM, ORDERED. PT TOLERATED THEM WELL. WILL CONTINUE TO MONITOR PT.
[2019-09-17] VITALS: BP 138/57
[2019-09-17] MEDS ORDERED: traZODone 50 MG TAB PO SCH
--- NOTE | 2019-09-17 00:18 | NUR ---
PT CONTINUES TO BE RESTLESS AND UNABLE TO FALL ASLEEP. ADMINISTERED PO TRAZODONE ORDERED. WILL CONTINUE TO MONITOR PT.
[2019-09-17] MEDS ORDERED: traZODone 50 MG TAB PO PRN (01:10)
--- NOTE | 2019-09-17 02:14 | NUR ---
PT GOT UP AND OUT OF BED. ASKED PT MULTIPLE TIMES IF SHE NEEDED TO USE THE RESTROOM. PT ONLY SAYS "OK" REPEATEDLY. TRIED TO ASSIST PT TO THE RESTROOM BUT PT WAS WOBBLY AND TOO WEAK. PT URINATED STANDING UP ON THE FLOOR. CHANGED PT'S LINEN AND GOWN. ASSISTED PT BACK TO BED AND REORIENTED PT TO SURROUNDINGS. ADMINISTERED PRN PO QUETIAPINE PER MD'S ORDER IF PT CONTINUES TO BE RESTLESS AND AGITATED. WILL CONTINUE TO MONITOR PT.
--- NOTE | 2019-09-17 03:05 | NUR ---
PT STILL AWAKE LYING DOWN QUIETLY WITH NO SIGNS OF DISTRESS OR AGITATION. WILL CONTINUE TO MONITOR PT.
[2019-09-17] MEDS: NACL 0.45% 1,000 ML IV SCH (04:20)
--- NOTE | 2019-09-17 05:32 | NUR ---
PT GOT UP AND OUT OF BED, TRYING TO GO TO THE RESTROOM. PT HAD BM AND VOIDED ON THE FLOOR. CHANGED AND REORIENTED PT. PT COOPERATED AFTER THE INCIDENT AND BEEN CLEANED AND CHANGED TO DIFFERENT GOWN. UNABLE TO COLLECT SPECIMEN DT INCIDENT. WILL CONTINUE TO MONITOR PT.
--- NOTE | 2019-09-17 06:22 | NUR ---
PT LYING DOWN QUIETLY WITH NO SIGNS OF DISTRESS OR AGITATION. WILL ENDORSE TO AM SHIFT RN FOR PT'S CONTINUITY OF CARE.
--- NOTE | 2019-09-17 07:20 | NUR ---
RECEIVED PT FROM AIR MARSHAL NURSE, PT IS AWAKE AND LYING ON THE BED WITH SIDE RAILS UP AND CALL LIGHT WITHIN REACH, NO IV LINE NOTED, PT DENIES PAIN, CONFUSED, SAFETY AND FALL PRECAUTION INITIATED, NO SIGN OF DISTRESS NOTED AND WILL MONITOR PT.
[2019-09-17 08:00] VITALS: BP 134/51
--- NOTE | 2019-09-17 09:30 | NUR ---
PT WAS REPOSITIONED AND CLEANED NOW.
[2019-09-17] MEDS: LEVOTHYROXINE 0.075 MG TAB PO SCH (09:33)
[2019-09-17] MEDS: SPIRONOLACTONE 25 MG TAB PO SCH (09:34)
[2019-09-17] MEDS: ATENOLOL 25 MG TAB PO SCH (09:34)
--- NOTE | 2019-09-17 11:00 | NUR ---
FAXED THE HOME HEALTH REQUEST TO [facility] [phone] CM TO FOLLOW
--- NOTE | 2019-09-17 14:30 | NUR ---
PT IS ASLEEP AND LYING ON THE BED, NO SIGN OF DISTRESS NOTED AND WILL MONITOR PT.
[2019-09-17] MEDS ORDERED: MELA3TAB56 PO (14:59)
[2019-09-17] MEDS ORDERED: POTASSIUM CHLORIDE 10 MEQ TABER PO ONE (15:05)
[2019-09-17 16:00] VITALS: BP 113/84
--- NOTE | 2019-09-17 16:03 | NUR ---
CALLED [facility] SPOKE WITH BRANDIE REGARDING THE HOME HEALTH ORDER ,PER BRANDIE [facility] IF [facility] WONT ACCEPT HER THE OTHER HOME HEALTH WILL ACCEPT HER AND WE CAN D/C PT HOME AND HOME HEALTH WILL F/U TOMORROW. NOTIFIED DR BETLRAN AND YAN RAY
--- NOTE | 2019-09-17 17:30 | NUR ---
DISCHARGED PT TO HOME WITH CAREGIVER, TEACHINGS AND INSTRUCTIONS GIVEN TO PT, WITH CAREGIVER AND VERBALIZED UNDERSTANDING, PT IS STABLE AT THIS TIME.
== END 2019-09-17 17:30 | disposition home health service (06) | DRG 73 ==
LOC: MED 14:39 → MTU 18:38
PROVIDERS: ADMIT General Practice; ATTEND General Practice
PROC: 4A00X4Z Measurement of Central Nervous Electrical Activity, External Approach (ICD-10-PCS; principal; 2019-09-16)
DX: G90.8 Other disorders of autonomic nervous system (principal); G93.41 Metabolic encephalopathy; E44.0 Moderate protein-calorie malnutrition; E87.0 Hyperosmolality and hypernatremia; G30.9 Alzheimer's disease, unspecified; F02.80 Dementia in other diseases classified elsewhere, unspecified severity, without behavioral disturbance, psychotic disturbance, mood disturbance, and anxiety; Z68.23 Body mass index [BMI] 23.0-23.9, adult; E87.6 Hypokalemia; I11.0 Hypertensive heart disease with heart failure; I50.9 Heart failure, unspecified; E03.9 Hypothyroidism, unspecified; E78.5 Hyperlipidemia, unspecified
CPT/HCPCS: 36415; 70450; 71045; 80048; 80053; 81003; 82140; 82550; 83036; 83690; 83735; 83880; 84100; 84134; 84443; 84484; 85025; 85610; 85730; 87081; 93005; 93880; 95816; 96360; 97116; 97161-GP; 99285; C1758; J1644; J2001; J3480; J7030; Q0092

== ENCOUNTER 2019-10-08 14:56 | Emergency (ER) | payer OTHER ==
[~2019-10-08] VITALS: Ht 160 cm; Wt 59.4 kg
[~2019-10-08 14:56] MED LIST changes: -ALEN70TA9 PO; +MELA3TAB56 PO; +QUET25TA PO; +SIMV-30 PO; -SIMV20TA6 PO; -SULF-58 PO; +TEMA15CA24 PO
[2019-10-08 15:00] VITALS: BP 151/65
--- NOTE | 2019-10-08 15:03 | NUR ---
PATIENT WHEELCHAIR ASSISTED TO BED 3.
--- NOTE | 2019-10-08 15:12 | NUR ---
83 Y/O FEMALE PRESENTNG WITH C/C OF FALL X2 DAYS WITH PAIN ON RLE, PER FAMILY PAIN IS NOTED ON KNEE AND HIP, PT MOANS WHEN TOUCHED OR NOTED WITH ACTIVITY ON RLE. HX GIVEN BY STEP DAUGHTER WHO IS AT BEDSIDE. PT NKA. MEDICAL HX OF DM, HTN, DEMENTIA, ALZHEIMERS. PT TAKES MEDICATION ON A REGULAR BASIS. NO DISCOMFORT ON ABD. PT DID NOT HIT HEAD AND THERE IS NO LOC PER STEP DAUGHTER. PT IS TAKEN CARE AT HOME BY CAREGIVERS. PER FAMILY IT WAS AN ASSISTED FALL. SIDE RAIL X1. STEP DAUGHTER AT BEDSIDE. Addendum: 10/08/19 at 1832 by MEDOF PER STEP DAUGHTER PT IS NOT DIABETIC.
--- NOTE | 2019-10-08 15:13 | NUR ---
PT ALERT TO SELF AND STEP DAUGHTER. DOES NOT ANSWER TO QUESTIONS. PT STATES "OKAY" WITH EVERY QUESTION ASKED
--- NOTE | 2019-10-08 15:28 | NUR ---
PT TAKEN TO XRAY VIA WHEELCHAIR
--- NOTE | 2019-10-08 15:52 | NUR ---
pt returned from xray
[2019-10-08] MEDS ORDERED: MELA5TAB6 PO (16:04)
[2019-10-08] MEDS ORDERED: ALEN70TA9 PO (16:04)
--- NOTE | 2019-10-08 16:05 | NUR ---
emt at bedside for ekg
--- NOTE | 2019-10-08 16:17 | NUR ---
DR KATZ AT BEDSIDE
--- NOTE | 2019-10-08 16:17 | NUR ---
lab at bedside
[2019-10-08] MEDS ORDERED: MORPHINE SULFATE 2 MG/ML SYR IVP ONE (16:25)
[2019-10-08 16:33] LABS: BASOPHILS % (AUTO) 0.6 % (0.0-2.0); EOSINOPHILS # (AUTO) 0.2 K/uL (0-0.4); EOSINOPHILS % (AUTO) 2.9 % (0.0-4.0); HEMOGLOBIN 11.4 g/dL (12.0-16.0); LYMPHOCYTES # (AUTO) 1.2 K/uL (2.5-16.5); LYMPHOCYTES % (AUTO) 14.1 % (20.5-51.1); MEAN CORPUSCULAR HEMOGLOBIN 29 pg (27-31); MEAN CORPUSCULAR HGB CONC 33 g/dL (33-37); MONOCYTES # (AUTO) 0.9 K/uL (0.8-1.0); MONOCYTES % (AUTO) 10.1 % (1.7-9.3); NEUTROPHILS # (AUTO) 6.1 K/uL (1.8-7.7); NEUTROPHILS % (AUTO) 72.3 % (42.2-75.2); PLATELET COUNT (AUTO) 339 K/uL (140-450); RED BLOOD CELL COUNT(AUTO) 3.93 MIL/uL (4.20-5.40); RED CELL DISTRIBUTION WIDTH 14.8 % (11.6-13.7); WHITE BLOOD COUNT (AUTO) 8.5 K/uL (4.8-10.8)
--- NOTE | 2019-10-08 16:44 | NUR ---
MORPHINE IVP ADMINISTERED BY LUZ RAY
[2019-10-08 17:00] LABS: ANION GAP 14.1 (8-16); CARBON DIOXIDE 26.6 mmol/L (21-32); CHLORIDE 106 mmol/L (98-107); CREATININE 1.2 mg/dL (0.6-1.3); GLUCOSE 172 mg/dL (74-106); POTASSIUM 3.7 mmol/L (3.5-5.1); SODIUM SERUM 143 mmol/L (136-145); UREA NITROGEN, BLOOD 22 mg/dL (7-18)
[2019-10-08 17:05] LABS: ALBUMIN 2.7 g/dL (3.4-5.0); ASPARTATE AMINOTRANSFERASE 13 U/L (15-37); TOTAL BILIRUBIN 0.4 mg/dL (0.0-1.0)
--- NOTE | 2019-10-08 17:12 | NUR ---
PT APPEARS TO BE IN NO PAIN USING FLACCSCALE. PT HX OF DEMENTIA
--- NOTE | 2019-10-08 17:38 | NUR ---
VS STABLE. DAUGHTER BEDSIDE. PT APPEARS TO BE IN NO DISTRESS.
--- NOTE | 2019-10-08 18:08 | NUR ---
PER DR. GIANNA SAHNI TO FEED PT.
--- NOTE | 2019-10-08 18:09 | NUR ---
CONSISTENT CARB DIET ORDERED
--- NOTE | 2019-10-08 18:14 | NUR ---
PT PENDING TRANSFER
--- NOTE | 2019-10-08 18:28 | NUR ---
PER PATIENTS FAMILY, PT DOES NOT HAVE DM, THEREFORE, ACCU CHECK NOT CHECKED BEFORE PT EATS
--- NOTE | 2019-10-08 18:36 | NUR ---
PT POSITIONED FOR EATING, FAMILY AT BEDSIDE TO ASSIST
--- NOTE | 2019-10-08 18:55 | NUR ---
PENDING ACCEPTING DOCTOR FROM [facility] , CHARGE NURSE AWARE. PT STABLE IN BED WITH STEP DAUGHTER AT BEDSIDE.
--- NOTE | 2019-10-08 19:16 | NUR ---
REPORT GIVEN TO VICKY RAY
--- NOTE | 2019-10-08 19:19 | NUR ---
RECEIVED REPORT FROM DAYSHIFT NURSE. PATIENT IN BED WITH NO COMPLAINTS AT THIS TIME. UPDATED PATIENT AND DAUGHTER AT BEDSIDE ABOUT TREATMENT PLAN. SIDERAILS UPx2, WILL CONTINUE TO MONITOR.
--- NOTE | 2019-10-08 21:15 | NUR ---
CALLED MADE TO [facility] FOR REPORT, CHARGE NURSE WILL HAVE RN CALL BACK. ER PHONE NUMBER GIVEN. STILL WAITING ON TRANSPORT. WILL UPDATE PATIENT.
--- NOTE | 2019-10-08 21:33 | NUR ---
CALL MADE TO [facility] AND SPOKE WITH CORY HURTADO FOR REPORT. ETA FOR TRANSFER 45 MINUTES.
--- NOTE | 2019-10-08 21:54 | NUR ---
[facility] TRANSPORT AT BEDSIDE
[2019-10-08 22:06] VITALS: BP 165/82
--- NOTE | 2019-10-08 22:06 | NUR ---
GAVE REPORT TO [facility]ANS FOR TRANSPORT. PATIENT IN STABLE CONDITION, STEP DAUGHTER AT BEDSIDE. D/C PERIPHERAL IV. ALL BELONGINGS TAKEN WITH PATIENT.
--- NOTE | 2019-10-08 22:10 | NUR ---
Patient to be transferred to [facility]. Is being transferred due to ORTHO CONSULT AND FURTHER OBSERVATION. Receiving facility has accepting physician and available space. ER physician has signed transfer form. Patient or responsible constitution party has agreed to transfer and signed form. Patient belongings inventoried and will be sent with patient. Copy of nursing notes, lab reports, EKG, Physicians Orders and X-rays to be sent with patient. Report called to CORY HAZEL at receiving facility. [facility] ambulance service has been called for transfer.
== END 2019-10-08 22:00 | disposition short-term general hospital (02) ==
LOC: MED 14:56
DX: S32.89XA Fracture of other parts of pelvis, initial encounter for closed fracture (principal); G30.9 Alzheimer's disease, unspecified; E11.9 Type 2 diabetes mellitus without complications; F03.90 Unspecified dementia, unspecified severity, without behavioral disturbance, psychotic disturbance, mood disturbance, and anxiety; Z79.899 Other long term (current) drug therapy; Z98.890 Other specified postprocedural states; W19.XXXA Unspecified fall, initial encounter; Y93.89 Activity, other specified; Y92.89 Other specified places as the place of occurrence of the external cause; Y99.8 Other external cause status
CPT/HCPCS: 36415; 71045; 73502; 73562; 80053; 84484; 85025; 93005; 96374; 99285; J2270

== ENCOUNTER 2019-11-03 15:34 | Inpatient (IN) | payer OTHER ==
[~2019-11-03] VITALS: Ht 157.5 cm; Wt 59.0 kg
[~2019-11-03 15:34] MED LIST changes: +ALEN70TA9 PO; -MELA3TAB56 PO; +MELA5TAB6 PO; -QUET25TA PO
[2019-11-03 15:44] VITALS: BP 169/93
--- NOTE | 2019-11-03 15:52 | NUR ---
PT PLACED IN LOBBY, VSS STABLE WITH CAREGIVER
--- NOTE | 2019-11-03 16:01 | NUR ---
Patient taken to XRAY via wheelchair by tech.
--- NOTE | 2019-11-03 17:50 | NUR ---
Pt w/c assisted to bed 7, accompanied by daughter.
--- NOTE | 2019-11-03 18:03 | NUR ---
84 Y/O F C/O RIGHT SHOULDER PAIN. PT HAS ALZHEIMERS, PT BARREL REPAIRER STATES SHE FELL YESTERDAY. RIGHT SHOULDER IS BRUISED, PT UNABLE TO LIFT ARM WITHOUT PAIN, CAP REFILL LESS THAN 3, HAND CLIENT SERVICES VICE PRESIDENT STRENGTH EQUAL BILATERAL. PT POSITIONED IN BED FOR COMFORT, SIDE RAIL X2 IN PLACE. DAUGHTER AT BEDSIDE. NKA MEDHX: ALZHEMIER, PELVIC FRACTURE X 2 MONTHS AGO.
--- NOTE | 2019-11-03 18:08 | NUR ---
XRAY DONE PRIOR TO PLACING PATIENT IN BED 7.
--- NOTE | 2019-11-03 18:58 | NUR ---
Dr. Mireles is evaluating the patient at bedside.
--- NOTE | 2019-11-03 19:14 | NUR ---
GAVE REPORT TO CORY COSBY FOR CHANGE OF SHIFT.
--- NOTE | 2019-11-03 20:04 | NUR ---
PT RESTING IN BED, VS STABLE. FAMILY AT BEDSIDE. WILL CONTINUE TO MONITOR.
--- NOTE | 2019-11-03 20:58 | NUR ---
PT AMBULATED TO RESTROOM UNABLE TO COLLECT URINE AT THIS TIME.
--- NOTE | 2019-11-03 21:01 | NUR ---
LAB AT BEDSIDE. DRAWING LABS. DAUGHTER AT BEDSIDE.
[2019-11-03 21:11] LABS: BASOPHILS # (AUTO) 0.1 K/uL (0.00-0.22); BASOPHILS % (AUTO) 0.7 % (0.0-2.0); EOSINOPHILS % (AUTO) 0.3 % (0.0-4.0); HEMATOCRIT 35.2 % (36-48); HEMOGLOBIN 11.6 g/dL (12.0-16.0); LYMPHOCYTES # (AUTO) 1.7 K/uL (2.5-16.5); LYMPHOCYTES % (AUTO) 16.9 % (20.5-51.1); MEAN CORPUSCULAR HEMOGLOBIN 30 pg (27-31); MEAN CORPUSCULAR HGB CONC 33 g/dL (33-37); MEAN CORPUSCULAR VOLUME 89.6 fL (80-94); MONOCYTES # (AUTO) 1.1 K/uL (0.8-1.0); NEUTROPHILS % (AUTO) 71.1 % (42.2-75.2); PLATELET COUNT (AUTO) 337 K/uL (140-450); RED BLOOD CELL COUNT(AUTO) 3.92 MIL/uL (4.20-5.40); RED CELL DISTRIBUTION WIDTH 15.1 % (11.6-13.7); WHITE BLOOD COUNT (AUTO) 9.9 K/uL (4.8-10.8)
[2019-11-03 21:24] LABS: PROTHROMBIN TIME 9.3 secs (10.8-13.4)
[2019-11-03] MEDS ORDERED: NACL 0.9% 1,000 ML IV SCH (21:41)
[2019-11-03] MEDS ORDERED: MORPHINE SULFATE 2 MG/ML SYR IVP PRN (21:45)
[2019-11-03] MEDS ORDERED: ACETAMINOPHEN 325 MG TAB PO PRN (21:45)
[2019-11-03] MEDS ORDERED: ONDANSETRON 4 MG/2 ML VIAL IM/IVP PRN (21:45)
[2019-11-03] MEDS ORDERED: HYDROcodone/APAP 5/325 MG 1 TAB TAB PO PRN (21:45)
[2019-11-03] MEDS ORDERED: DOCUSATE SODIUM 100 MG GELCAP PO PRN (21:45)
[2019-11-03 21:50] LABS: ANION GAP 14.9 (8-16); CARBON DIOXIDE 26.3 mmol/L (21-32); CHLORIDE 104 mmol/L (98-107); CREATININE 0.9 mg/dL (0.6-1.3); GLUCOSE 120 mg/dL (74-106); POTASSIUM 3.2 mmol/L (3.5-5.1); SODIUM SERUM 142 mmol/L (136-145); UREA NITROGEN, BLOOD 12 mg/dL (7-18)
[2019-11-03] MEDS ORDERED: MELATONIN 3 MG TAB PO PRN ×2 (21:50→23:35)
[2019-11-03] MEDS ORDERED: MEDICATION REC. PHARMACY CONS. 1 EA MISC MC PRN (21:50)
[2019-11-03 21:56] LABS: ALBUMIN 3.2 g/dL (3.4-5.0); ASPARTATE AMINOTRANSFERASE 12 U/L (15-37); TOTAL BILIRUBIN 0.5 mg/dL (0.0-1.0)
--- NOTE | 2019-11-03 21:56 | NUR ---
XRAY AT BEDSIDE. FAMILY AT BEDSIDE. BED IN LOWEST POSITION AND LOCKED IN PLACE.
[2019-11-03 22:07] LABS: MAGNESIUM 1.9 mg/dL (1.8-2.4); PHOSPHORUS 3.1 mg/dL (2.5-4.9)
--- NOTE | 2019-11-03 22:27 | NUR ---
DR NOTIFED THAT PT WAS UNABLE TO PROVIDE URINE. DR STATED NOT TO CATH PT. PT RESTING. DAUGHTER AT BEDSIDE. BED AT LOWEST POSITION AND LOCKED IN PLACE.
[2019-11-03 23:00] VITALS: BP 163/60
--- NOTE | 2019-11-03 23:00 | NUR ---
ADMITTED AN 84F FROM ER. CAME VIA GURNEY ACCOMPANIED BY STEP DAUGHTER. BEDREST. CAME DUE TO FX OF THE RT ARM S/P FALL 1 DAY AGO. UNABLE TO MOVE HER RT ARM DUE TO PAIN FROM THE FALL. ORIENTED TO HOSPITAL ROUTINES. PLAN OF CARE DISCUSSED AND FAMILY VERBALIZED UNDERSTANDING. BED ON LOW POSITION, SIDE RAILS UP X2, CALL . HL ON THE LT AC G#20. CLEAR AND PATENT. LIGHT PLACED WITHIN REACH. POSITIONED FOR COMFORT. WILL FOLLOW UP ALL ADMIT ORDERS.
--- NOTE | 2019-11-03 23:13 | NUR ---
Patient will be admitted to care of [facility]. Admited to TELE. Will go to room 121A. Belongings list completed. Report to TULIO RAY.
[2019-11-03] MEDS ORDERED: ENOXAPARIN 40 MG/0.4 ML SYR SUBQ SCH (23:35)
[2019-11-03] MEDS ORDERED: QUEtiapine FUMARATE 25 MG TAB PO PRN (23:35)
[2019-11-04] MEDS ORDERED: QUET25TA PO (00:34)
[2019-11-04] MEDS ORDERED: amLODIPine 5 MG TAB PO SCH (01:00)
[2019-11-04] MEDS ORDERED: POTASSIUM CHLORIDE 10 MEQ TABER PO SCH ×2 (01:00→20:00)
[2019-11-04] MEDS ORDERED: ENOXAPARIN 40 MG/0.4 ML SYR SUBQ SCH (01:00)
--- NOTE | 2019-11-04 01:22 | NUR ---
PT GIVEN LOVENOX SUB Q PER MD ORDER . ALSO K DUR 40 MEQ PO FOR K LEVEL 3.2 . WILL HAVE LAB DRAWN IN AM .
--- NOTE | 2019-11-04 03:00 | NUR ---
MADE ROUNDS. PT ASLEEP. NO S/S OF ANY DISCOMFORT NOTED.
[2019-11-04 03:57] VITALS: BP 159/58
--- NOTE | 2019-11-04 05:00 | NUR ---
PT INCONTINENT X1 AND HAD A MODERATE AMOUNT BM. CLEANED AND KEPT DRY. UNABLE TO COLLECT URINE SPECIMEN .
[2019-11-04] MEDS: LEVOTHYROXINE 0.075 MG TAB PO SCH (05:57)
[2019-11-04] MEDS: DEXT 5% /NACL 0.9% 1,000 ML IV SCH ×2 (07:02→20:00)
--- NOTE | 2019-11-04 07:05 | NUR ---
REPORT RECEIVED FROM THERMODYNAMICIST NURSE AT BEDSIDE FOR CONTINUITY OF CARE. IV SITE INTACT, INFUSING IVF WELL. PATIENT FOLLOWS COMMANDS, ONLY RESPONSE WITH "OK, YES, NO". RESPIRATIONS EVEN AND UNLABORED ON ROOM AIR. VS WNL. UPDATED BOARD. UPDATED PATIENT WITH PLAN OF CARE. SHE NODDED AND STATED "OK". SAFETY PRECAUTIONS IN PLACE, CALL LIGHT WITHIN REACH, WILL CONTINUE TO MONITOR PATIENT.
--- NOTE | 2019-11-04 07:05 | NUR ---
ENDORSED PT IN STABLE CONDITION TO AM NURSE FRO CONTINUITY OF CARE.
[2019-11-04 08:00] VITALS: BP 142/60
[2019-11-04] MEDS ORDERED: QUEtiapine FUMARATE 25 MG TAB PO PRN (08:35)
[2019-11-04] MEDS ORDERED: SIMVASTATIN 20 MG TAB PO SCH (09:00)
--- NOTE | 2019-11-04 10:07 | NUR ---
DOCTOR IN TO SPEAK TO PATIENT AND STEPDAUGHTER MENDOZA. WILL WAIT FOR NEW ORDERS.
[2019-11-04] MEDS: SPIRONOLACTONE 25 MG TAB PO SCH (10:54)
[2019-11-04] MEDS: ATENOLOL 25 MG TAB PO SCH (10:54)
--- NOTE | 2019-11-04 10:54 | NUR ---
ORDERED MEDICATIONS GIVEN. PATIENT TOLERATED THEM WELL. BIANCA DONALDSON AT BEDSIDE. WILL CONTINUE TO MONITOR PATIENT.
[2019-11-04 12:00] VITALS: BP 135/45
[2019-11-04 12:14] LABS: BASOPHILS % (AUTO) 0.3 % (0.0-2.0); EOSINOPHILS % (AUTO) 0.5 % (0.0-4.0); HEMATOCRIT 34.4 % (36-48); HEMOGLOBIN 11.1 g/dL (12.0-16.0); LYMPHOCYTES # (AUTO) 0.7 K/uL (2.5-16.5); MEAN CORPUSCULAR HEMOGLOBIN 29 pg (27-31); MEAN CORPUSCULAR HGB CONC 32 g/dL (33-37); MEAN CORPUSCULAR VOLUME 90.8 fL (80-94); MONOCYTES # (AUTO) 1.1 K/uL (0.8-1.0); PLATELET COUNT (AUTO) 294 K/uL (140-450); RED BLOOD CELL COUNT(AUTO) 3.79 MIL/uL (4.20-5.40); RED CELL DISTRIBUTION WIDTH 15.1 % (11.6-13.7); WHITE BLOOD COUNT (AUTO) 8.9 K/uL (4.8-10.8)
--- NOTE | 2019-11-04 12:30 | NUR ---
CONSENT SIGNED FOR PROCEDURE WITH DR. WOLF. PATIENT'S STEPDAUGHTER MENDOZA SIGNED FOR PATIENT. NO COMPLAINTS AT THIS TIME. WILL CONTINUE TO MONITOR PATIENT.
[2019-11-04 12:39] LABS: LYMPHOCYTES % (AUTO) 8.4 % (20.5-51.1); NEUTROPHILS % (AUTO) 78.6 % (42.2-75.2)
[2019-11-04 12:40] LABS: ANION GAP 13.3 (8-16); CHLORIDE 106 mmol/L (98-107); CREATININE 0.8 mg/dL (0.6-1.3); GLUCOSE 140 mg/dL (74-106); MONOCYTES % (AUTO) 12.2 % (1.7-9.3); POTASSIUM 3.3 mmol/L (3.5-5.1); SODIUM SERUM 143 mmol/L (136-145); UREA NITROGEN, BLOOD 10 mg/dL (7-18)
--- NOTE | 2019-11-04 14:15 | NUR ---
Clean Up Person Note: Basic Screen: Yes High Risk DC Screen Yes Name: VIOLET GRIFFITH Home Relationship: DAUGHTER Pre-Admission Living Arrangements: Lives with Other Prior ADL Needs Assistance Current Home Health Name/Tel: CANNOT RECALL Current /02 Name/Tel: WHEELCHAIR, COMMODE, SHOWER CHAIR, WALKER Current Hospice Name/Tel: N/A Current Dialysis Name/Tel: N/A Healthcare Decision Maker: Next of Kin Advance Directive No Physician Orders for Life Sustaining Treatment Form No Patient/Family Have Educational Needs No Information Taught: Advance Directive Person Taught: Children Teaching Tools: Verbal Factors Affecting Learning: None Participation Level: Refused Evaluation: Verbalizes Understanding Needs Additional Education: No Discipline: Case Mgt/Social Svcs Tentative Discharge Plan/Destination: No Needs Identified Will require assistance post discharge: No Referred to Spray Booth Operator: No Tentative Discharge Plan Summary: Patient is an 84-year-old female admitted for right humerus fracture. Patient has PMHX of diabetes, dementia, hypertension, and thyroid disease. Patient was admitted from home. SW met with patient's daughter, Violet Griffith at bedside to complete assessment and verify demographics. Per Violet, patient lives with a 24-hour caregiver named Claudai Frazier. Violet stated that Claudia assists with all ADLs. Violet reported that patient has a mental health history of dementia and no substance abuse history. Violet stated that she visits patient daily to assist caregiver in taking care of her mother. Violet stated that patient's plan after discharge is to receive physical therapy from her home health and to return home. No further needs identified. Signature: NELDA Suarez Date: Nov 04, 2019 Time: 14:13
--- NOTE | 2019-11-04 18:45 | NUR ---
INFORMED DR. LA ABOUT PATIENT'S POTASSIUM LEVEL. WILL WAIT FOR ORDERS.
--- NOTE | 2019-11-04 19:20 | NUR ---
REPORT GIVEN TO SCISSORS GRINDER NURSE AT BEDSIDE FOR CONTINUITY OF CARE. PATIENT IN STABLE CONDITION.
--- NOTE | 2019-11-04 19:22 | NUR ---
RECEIVED PATIENT LAYING IN BED. AWAKE AND ALERT. WITH FAMILY MEMBERS AT BEDSIDE. ON ROOM AIR. NO DISTRESS NOTED. IV ACCESS ON LEFT AC 20 GAUGE. PATENT AND INTACT. BED IN LOW. SAFETY MEASURES IN PLACE. INITIAL ASSESSMENT DONE. CALL LIGHT WITHIN PATIENT REACH. WILL CONTINUE TO MONITOR PATIENT.
[2019-11-04] MEDS ORDERED: BLOOD GLUCOSE MONITORING 1 DEV DEV FS SCH (20:00)
--- NOTE | 2019-11-04 21:20 | NUR ---
ROUNDS DONE. VISIBLE CHEST RISE AND FALL NOTED. WILL CONTINUE TO MONITOR PATIENT.
[2019-11-04] MEDS: SIMVASTATIN 20 MG TAB PO SCH (23:24)
[2019-11-04] MEDS ORDERED: POTASSIUM CHLORIDE 10 MEQ TABER PO ONE (23:29)
[2019-11-05 00:20] VITALS: BP 133/42
--- NOTE | 2019-11-05 00:20 | NUR ---
VITALS TAKEN AT THIS TIME. CALL LIGHT WITHIN PATIENT REACH. WILL CONTINUE TO MONITOR PATIENT.
[2019-11-05] MEDS: DEXT 5% /NACL 0.9% 1,000 ML IV SCH (01:53)
--- NOTE | 2019-11-05 02:12 | NUR ---
ROUNDS DONE. NO DISTRESS NOTED.WILL CONTINUE TO MONITOR PATIENT.
--- NOTE | 2019-11-05 04:12 | NUR ---
ROUNDS DONE. VISIBLE CHEST RISE AND FALL NOTED. WILL CONTINUE TO MONITOR PATIENT.
[2019-11-05] MEDS: LEVOTHYROXINE 0.075 MG TAB PO SCH (06:11)
--- NOTE | 2019-11-05 06:56 | NUR ---
PT IN STABLE CONDITION. CALL LIGHT WITHIN PATIENT REACH. WILL ENDORSE TO AM SHIFT NURSE FOR CONTINUITY OF CARE.
--- NOTE | 2019-11-05 07:10 | NUR ---
RECEIVED REPORT FROM NIGHT NURSE. PT WITH EYES CLOSED, AROUSABLE TO SPEECH. AAOX1. DENIES PAIN, NO DISTRESS NOTED. SKIN INTACT, RIGHT ARM BRUISED. RESPIRATIONS EVEN AND UNLABORED ON ROOM AIR. IV PATENT AND ASYMPTOMATIC IN LEFT H 20G INFUSING PER ORDER. SAFETY MEASURES IN PLACE, BED IN LOW POSITION. CALL LIGHT WITHIN REACH. WILL CONTINUE TO MONITOR.
[2019-11-05 07:21] LABS: BASOPHILS % (AUTO) 0.4 % (0.0-2.0); EOSINOPHILS # (AUTO) 0.2 K/uL (0-0.4); EOSINOPHILS % (AUTO) 2.3 % (0.0-4.0); HEMATOCRIT 31.1 % (36-48); HEMOGLOBIN 10.2 g/dL (12.0-16.0); LYMPHOCYTES # (AUTO) 1.3 K/uL (2.5-16.5); LYMPHOCYTES % (AUTO) 13.4 % (20.5-51.1); MEAN CORPUSCULAR HEMOGLOBIN 30 pg (27-31); MEAN CORPUSCULAR HGB CONC 33 g/dL (33-37); MEAN CORPUSCULAR VOLUME 90.3 fL (80-94); MONOCYTES # (AUTO) 1.2 K/uL (0.8-1.0); MONOCYTES % (AUTO) 12.6 % (1.7-9.3); NEUTROPHILS # (AUTO) 6.6 K/uL (1.8-7.7); NEUTROPHILS % (AUTO) 71.3 % (42.2-75.2); PLATELET COUNT (AUTO) 268 K/uL (140-450); RED BLOOD CELL COUNT(AUTO) 3.45 MIL/uL (4.20-5.40); RED CELL DISTRIBUTION WIDTH 15.7 % (11.6-13.7); WHITE BLOOD COUNT (AUTO) 9.3 K/uL (4.8-10.8)
[2019-11-05 07:41] LABS: ANION GAP 12.5 (8-16); CARBON DIOXIDE 25.3 mmol/L (21-32); CHLORIDE 107 mmol/L (98-107); CREATININE 0.8 mg/dL (0.6-1.3); GLUCOSE 110 mg/dL (74-106); POTASSIUM 3.8 mmol/L (3.5-5.1); SODIUM SERUM 141 mmol/L (136-145); UREA NITROGEN, BLOOD 7 mg/dL (7-18)
[2019-11-05 07:48] LABS: MAGNESIUM 1.9 mg/dL (1.8-2.4); PHOSPHORUS 2.5 mg/dL (2.5-4.9)
[2019-11-05 08:00] VITALS: BP 135/57
--- NOTE | 2019-11-05 08:31 | NUR ---
PATIENT HAS BEEN SCREENED AND CATEGORIZED MODERATE NUTRITION RISK. PATIENT WILL BE SEEN WITHIN 3-5 DAYS OF ADMISSION. 11/06/19 11/08/[address]
--- NOTE | 2019-11-05 09:00 | NUR ---
P.T. NOTES P.T. EVAL HELD DUE TO PATIENT WILL BE UNDERGOING SURGERY FOR HER (R) ARM PER NURSE TAURUS. PLAN: WE'LL AWAIT FOR A NEW M.D. ORDER POST SURGICAL INTERVENTION.
[2019-11-05] MEDS: SPIRONOLACTONE 25 MG TAB PO SCH (09:36)
[2019-11-05] MEDS: ATENOLOL 25 MG TAB PO SCH (09:36)
--- NOTE | 2019-11-05 09:37 | NUR ---
PT TRANSPORTED OFF UNIT IN [facility] FOR CLOSED REDUCTION SURGERY IN RIGHT ARM.
--- NOTE | 2019-11-05 09:37 | NUR ---
MEDICATIONS ADMINISTERED PER ORDER. PT TOLERATED WELL. HEPARIN HELD PRIOR TO TRANSFER TO OR. WILL CONTINUE TO MONITOR.
[2019-11-05] MEDS ORDERED: fentaNYL 0.05 MG/ML VIAL ONE (09:50)
[2019-11-05] MEDS ORDERED: PROPOFOL 200 MG/20 ML VIAL IV ONE (10:08)
--- NOTE | 2019-11-05 11:00 | NUR ---
PT RETURNS TO UNIT FROM OR. WILL MONITOR VITAL SIGNS [id number]. SAFETY MEASURES IN PLACE. WILL CONTINUE TO MONITOR.
--- NOTE | 2019-11-05 13:12 | NUR ---
PT LUNCH TRAY DELIVERED. STEP DAUGHTER AT THE BEDSIDE, WILL HELP HER WITH FEEDING. PTT DENIES PAIN, NO DISTRESS NOTED. SAFETY MEASURES IN PLACE. CALL LIGHT WITHIN REACH, WILL CONTINUE TO MONITOR.
--- NOTE | 2019-11-05 15:37 | NUR ---
VITAL SIGNS TAKEN AT THIS TIME. PT DENIES PAIN, NO DISTRESS NOTED. STEPDAUGHTER AT THE BEDSIDE. SAFETY MEASURES IN PLACE. CALL LIGHT WITHIN REACH. WILL CONTINUE TO MONITOR.
[2019-11-05 16:00] VITALS: BP 144/56
--- NOTE | 2019-11-05 17:42 | NUR ---
PT IN BED AWAKE, NO DISTRESS NOTED. DENIES PAIN. SAFETY MEASURES IN PLACE. CALL LIGHT WITHIN REACH. WILL CONTINUE TO MONITOR.
--- NOTE | 2019-11-05 19:10 | NUR ---
REPROT GIVEN TO NIGHT NURSE FOR CONTINUITY OF CARE.
[2019-11-05 20:25] VITALS: BP 155/68
--- NOTE | 2019-11-05 20:25 | NUR ---
SEEN PT AWAKE KEEPS SAYING "OK, OK" DAUGHTER AT BEDSIDE. INITIAL ASSESSMENT DONE. VITAL SIGNS CHECKED. PT APPEARS TO BE NOT IN PAIN. DAUGHTER SAID TO GIVE PT MELATONIN SINCE THAT'S WHAT THEY GIVE AT HOME TO CALM HER DOWN AND LET HER SLEEP. WILL CHECK MEDICATION LIST. SAFETY REINFORCED. WILL CONTINUE TO MONITOR.
[2019-11-05] MEDS: SIMVASTATIN 20 MG TAB PO SCH (21:13)
--- NOTE | 2019-11-05 21:15 | NUR ---
SEEN PT AWAKE, ALERT AND CONFUSED. DAUGHTER AT BEDSIDE. MEDICATIONS GIVEN W/ TEACHINGS. DAUGHTER VERBALIZED UNDERSTANDING. MELATONIN GIVEN PER DAUGHTER'S REQUEST. PT REPOSITIONED FOR COMFORT. IVF INFUSING WELL. BED ALARM ON. WILL CONTINUE TO MONITOR.
--- NOTE | 2019-11-06 00:10 | NUR ---
SEEN PT AWAKE, TRYING TO REMOVE HER GOWN AND PICKING ON HER IV SITE. KERLIX REWRAP AND PT COVERED W/ HER GOWN. IVF INFUSING WELL. WILL CONTINUE TO MONITOR.
--- NOTE | 2019-11-06 02:20 | NUR ---
SEEN PT APPEARS SLEEPY. IVF INFUSING WELL. WILL CONTINUE TO MONITOR. BED ALARM ON.
[2019-11-06 04:10] VITALS: BP 140/50
--- NOTE | 2019-11-06 04:10 | NUR ---
AWAKEN PT. VITAL SIGNS CHECKED. PT DENIES ANY DISCOMFORT. WILL CONTINUE TO MONITOR.
[2019-11-06 05:43] LABS: BASOPHILS % (AUTO) 0.4 % (0.0-2.0); EOSINOPHILS # (AUTO) 0.2 K/uL (0-0.4); EOSINOPHILS % (AUTO) 2.4 % (0.0-4.0); HEMATOCRIT 29.1 % (36-48); HEMOGLOBIN 9.6 g/dL (12.0-16.0); LYMPHOCYTES # (AUTO) 1.4 K/uL (2.5-16.5); LYMPHOCYTES % (AUTO) 16.9 % (20.5-51.1); MEAN CORPUSCULAR HEMOGLOBIN 30 pg (27-31); MEAN CORPUSCULAR HGB CONC 33 g/dL (33-37); MEAN CORPUSCULAR VOLUME 89.2 fL (80-94); MONOCYTES # (AUTO) 1.1 K/uL (0.8-1.0); NEUTROPHILS # (AUTO) 5.5 K/uL (1.8-7.7); NEUTROPHILS % (AUTO) 67.3 % (42.2-75.2); PLATELET COUNT (AUTO) 275 K/uL (140-450); RED BLOOD CELL COUNT(AUTO) 3.26 MIL/uL (4.20-5.40); RED CELL DISTRIBUTION WIDTH 15.3 % (11.6-13.7); WHITE BLOOD COUNT (AUTO) 8.2 K/uL (4.8-10.8)
[2019-11-06 05:59] LABS: MAGNESIUM 1.8 mg/dL (1.8-2.4); PHOSPHORUS 2.9 mg/dL (2.5-4.9)
[2019-11-06 06:17] LABS: ANION GAP 11.9 (8-16); CARBON DIOXIDE 25.4 mmol/L (21-32); CHLORIDE 106 mmol/L (98-107); CREATININE 0.7 mg/dL (0.6-1.3); GLUCOSE 110 mg/dL (74-106); POTASSIUM 3.3 mmol/L (3.5-5.1); SODIUM SERUM 140 mmol/L (136-145); UREA NITROGEN, BLOOD 7 mg/dL (7-18)
--- NOTE | 2019-11-06 06:25 | NUR ---
SEEN PT AWAKE. PO SYNTHROID GIVEN ORDERED W/ TEACHING. PT TOLERATED MEDS WELL. PT KEPT COMFORTABLE.
[2019-11-06] MEDS: LEVOTHYROXINE 0.075 MG TAB PO SCH (06:28)
--- NOTE | 2019-11-06 07:05 | NUR ---
RECEIVED REPORT FROM NIGHT NURSE. PT IS ASLEEP IN BED. LH 20G RUNNING D5 NS AT 75ML/H, PT IS STABLE, SAFETY MEASURES IN PLACE, CALL LIGHT WITHIN REACH.
[2019-11-06 08:00] VITALS: BP 144/56
[2019-11-06] MEDS ORDERED: POTASSIUM CHLORIDE 40 MEQ, LIDOCAINE MPF 1% 25 MG in NACL 0.9% 250 ML IV ONE (08:00)
[2019-11-06] MEDS: SPIRONOLACTONE 25 MG TAB PO SCH (08:48)
[2019-11-06] MEDS: ATENOLOL 25 MG TAB PO SCH (08:49)
--- NOTE | 2019-11-06 09:04 | NUR ---
ADMINISTER MEDICATION, PT TOLERATED WELL. FAMILY AT BEDSIDE, PT IS STABLE, CALL LIGHT WITHIN REACH.
--- NOTE | 2019-11-06 12:00 | NUR ---
PT IN BED, AWAKE, FAMILY MEMBER AT BEDSIDE. CALL LIGHT WITHIN REACH.
--- NOTE | 2019-11-06 12:20 | NUR ---
DC PLANNING 84 YRS OLD FEMALE PATIENT ADMITTED FROM HOME WITH A DX OF RIGHT HUMERUS FRACTURE/DISLOCATION AND INTRACTABLE PAIN. PT HAS A HX OF HTN , DEMENTIA AND MULTIPLE MECHANICAL FALLS . PT LIVES ALONE AT HOME WITH A 24 HR CAREGIVER. PT AMBULATES WITH ASSIST. CLOSED REDUCTION DONE ON THE RIGHT HUMERAL HEAD BY DR WOLF AND PLACED IMMOBILIZER . DC PLAN TO GO HOME WITH HOME HEALTH. CM TO FOLLOW. Addendum: 11/06/19 at 1309 by Lashawn Puga DC PLANNING CALLED [facility] [phone] SPOKE WITH LOIS ,NOTIFIED HER THAT PT WILL BE DISCHARGED TODAY AND PER LOIS WILL CONTINUE THE CARE.
--- NOTE | 2019-11-06 14:00 | NUR ---
PT DISCHARGE HOME. FAMILY MEMBER, MENDOZA, TOOK PT HOME VIA PRIVATE VEHICLE, PT WHEELED OUT TO THE CAR. PT IS STABLE, NO SIGNS OF DISTRESS.
== END 2019-11-06 14:10 | disposition home or self-care (01) | DRG 563 ==
LOC: MED 15:34 → MTU 21:48
PROVIDERS: ADMIT General Practice; ATTEND General Practice
PROC: 0PSCXZZ Reposition Right Humeral Head, External Approach (ICD-10-PCS; principal; 2019-11-05 09:30)
DX: S42.291A Other displaced fracture of upper end of right humerus, initial encounter for closed fracture (principal); E44.1 Mild protein-calorie malnutrition; M19.111 Post-traumatic osteoarthritis, right shoulder; E03.9 Hypothyroidism, unspecified; I10 Essential (primary) hypertension; E11.9 Type 2 diabetes mellitus without complications; F03.90 Unspecified dementia, unspecified severity, without behavioral disturbance, psychotic disturbance, mood disturbance, and anxiety; E78.5 Hyperlipidemia, unspecified; E87.6 Hypokalemia; Z68.23 Body mass index [BMI] 23.0-23.9, adult; W19.XXXA Unspecified fall, initial encounter; Y93.89 Activity, other specified; Y92.89 Other specified places as the place of occurrence of the external cause; Y99.8 Other external cause status; M18.10 Unilateral primary osteoarthritis of first carpometacarpal joint, unspecified hand
CPT/HCPCS: 36415; 71045; 73030; 73080; 73110; 80048; 80053; 82948; 83735; 84100; 85025; 85610; 85730; 87081; 93005; 97112; 99285; J1644; J1650; J2001; J2704; J3010; J3480; J7030; J7042; Q0092

== ENCOUNTER 2021-11-18 09:03 | Emergency (ER) | payer OTHER ==
[~2021-11-18] VITALS: Ht 160 cm; Wt 59.0 kg
[~2021-11-18 09:03] MED LIST changes: -ALEN70TA9 PO; +QUET25TA PO
[2021-11-18 09:20] VITALS: BP 119/70
--- NOTE | 2021-11-18 11:25 | NUR ---
PT TAKEN TO BED 2.
--- NOTE | 2021-11-18 13:47 | NUR ---
86/F BIB GRANDDAUGHTER WITH C/O FALL X1 HOUR AGO. FAMILY STATES PATIENT LOST BALANCE AND FELL BACKWARDS, STATING "WE HEARD SOMETHING POP." STATES PATIENT HAS NOT BEEN ABLE TO WALK SINCE THE FALL. IN ED, VSS. PT IS AWAKE BUT NOT ANSWERING QUESTIONS ASKED. REGULAR RATE, NORMAL RHYTHM. CLEAR BREATH SOUNDS. ERMD MADE AWARE OF PT STATUS. MEDHX: ALZHEIMERS, HTN, HLD ALLERGIES: DENIES
--- NOTE | 2021-11-18 13:49 | NUR ---
[facility]
[2021-11-18] MEDS: ACETAMINOPHEN EXTRA STRENGTH 500 MG TAB PO ONE (15:21)
[2021-11-18] MEDS: KETOROLAC 30 MG/ML VIAL IM ONE (15:21)
[2021-11-18] MEDS ORDERED: ACET-10509 PO (19:18)
--- NOTE | 2021-11-18 19:21 | NUR ---
REPORT GIVEN TO CORY CAMPOS. ALL CARE TRANSFERRED AT THIS TIME.
--- NOTE | 2021-11-18 20:45 | NUR ---
Patient discharged with v/s stable. Written and verbal after care instructions given and explained. Patient verbalized understanding. Wheel Chair Assisted with to car. All questions addressed prior to discharge. Advised to follow up with PMD.
[2021-11-18 20:47] VITALS: BP 98/51
== END 2021-11-18 20:45 | disposition home or self-care (01) ==
LOC: MED 09:03
DX: S32.010A Wedge compression fracture of first lumbar vertebra, initial encounter for closed fracture (principal); E07.9 Disorder of thyroid, unspecified; F03.90 Unspecified dementia, unspecified severity, without behavioral disturbance, psychotic disturbance, mood disturbance, and anxiety; I10 Essential (primary) hypertension; W19.XXXA Unspecified fall, initial encounter; Y93.89 Activity, other specified; Y92.89 Other specified places as the place of occurrence of the external cause; Y99.8 Other external cause status
CPT/HCPCS: 72110; 72131; 72170; 93005; 96372; 99285; J1885